=== PATIENT | female | born 1935 | race Caucasian/White ===

== ENCOUNTER 2019-04-24 01:33 | Day surgery (SDC) | payer MEDICARE, SELFPAY ==
[2019-04-21 14:45] VITALS: BMI 24.5
[2019-04-24 10:51] VITALS: BP 160/63; PULSE 68; RESP 18; TEMP 36.6; O2SAT 97
--- NOTE | 2019-04-24 11:09 | PM.IMHP ---
H&P: HPI History of Present Illness Chief complaint: hx of colon polyps Narrative: Rg Brooks is a 83 year old female presents today for surveillance colonoscopy. Last colonoscopy was in 2105 in [place], [place] and she tells me she had a cluster of polyps and then had surgery? to remove the polyps a month later. She also reports hx of precancerous polyps. She denies any acute bowel habit changes, diarrhea, constipation, melena, hematochezia, abdominal pains or rectal pains. She does have GERD and takes omeprazole which keeps symptoms under control. She denies abnormal weight loss, fever or chills. Denies family hx of GI maliganacies. Review of Systems Review of Systems: All systems reviewed & are unremarkable except as noted in HPI and below PMFSH Past Medical History Medical History (Updated 04/24/19 @ 11:12 by Tana Cleary, PREMIX OPERATOR CONCENTRATE) GERD (gastroesophageal reflux disease) Hx of adenomatous colonic polyps Hx of renal calculi Surgical History Surgical History (Updated 04/24/19 @ 11:12 by Tana Cleary, PREMIX OPERATOR CONCENTRATE) History of bladder suspension procedure Hx laparoscopic cholecystectomy Hx of hysterectomy Hx of lithotripsy Family History Family History (Updated 04/24/19 @ 11:12 by Tana Cleary, PREMIX OPERATOR CONCENTRATE) Mother Breast cancer Meds Home Medications and Allergies Home Medications Medication Instructions Recorded Confirmed Type aspirin 81 mg PO DAILY 04/21/19 04/21/19 History cholecalciferol (vitamin D3) 4,000 unit PO DAILY 04/21/19 04/21/19 History [Vitamin D3] diphenhydramine-acetaminophen 1 tablet PO HS PRN 04/21/19 04/21/19 History [Tylenol PM Extra Strength] garlic 2,000 mg PO DAILY 04/21/19 04/21/19 History glucosamine sulfate [Glucosamine] 500 mg PO BID 04/21/19 04/21/19 History hydrochlorothiazide 25 mg PO DAILY 04/21/19 04/21/19 History omega 2-nyq-gpz-fish oil [Fish Oil] 1 cap PO DAILY 04/21/19 04/21/19 History omeprazole 20 mg PO DAILY 04/21/19 04/21/19 History potassium chloride 20 meq PO DAILY 04/21/19 04/21/19 History Allergies Allergy/AdvReac Type Severity Reaction Status Date / Time No Known Allergies Allergy Verified 04/24/19 10:49 Vital Signs Vital Signs - 24 hr 04/24/19 10:51 Temperature 36.6 C Pulse Rate 68 Respiratory Rate 18 Blood Pressure 160/63 H Pulse Oximetry 97 Exam Const: General: cooperative, healthy appearing, comfortable, alert and awake Nutritional Appearance: average body habitus Orientation/consciousness: oriented to person, oriented to place, oriented to time and patient oriented x3 Limitations: no limitations HENMT: Head: normal to inspection and normocephalic Mouth: Yes Normal oral and palatal mucosa present and Yes moist mucous membranes Neck: Neck: normal visual inspection, supple and no JVD Carotids: no bruits Resp: Effort & Inspection: normal respiratory effort and no respiratory distress Auscultation: clear to auscultation bilaterally Cardio: Rate: regular rate Rhythm: regular rhythm Heart sounds: S1 normal heart sound present, S2 normal heart sound present, no gallops, no murmurs and no rubs GI: Inspection: normal to inspection GI Palp: No abdominal tenderness and No No hepatosplenomegaly present Percussion: Yes normal to percussion Auscultation: normal bowel sounds Rectal Exam: deferred Skin: General skin exam: normal color Lesions: no lesions Rashes: no rashes Neuro: General: oriented to person, oriented to place, oriented to time, patient oriented x3 and moves all extremities Cognition (Neuro): normal cognition Speech: normal speech Gait exam (Neuro): Normal gait present Extrem: General: normal to inspection Psych: Appearance: grossly normal Mental Status: mental status grossly normal Speech and movement: Normal speech and movement present Affect: normal affect Attitude: cooperative Thought process: Normal thought process present Assessment and Plan Assessment and plan (1) Hx of adenomatous colonic polyps:
[2019-04-24] MEDS: LACTATED RINGERS 1,000 ML 150 ML IV CONT (11:16)
--- NOTE | 2019-04-24 11:21 | P.PNAN_ITS ---
Anes - Initial Pre Proc Eval Procedure: Operation Date: 04/24/19 11:30 Proposed Procedures p Screening Colonoscopy - Shawn Alicea DO Date/Time: 04/24/19 11:21 Surgeon: Shawn Alicea DO Pre Op Diagnosis: hx of colon polyps Patient Data Age: 83 Gender: F Height: 5 ft 4 in Weight: 64 kg Last Vital Signs Temp 97.9 F 04/24/19 10:51 Pulse 68 04/24/19 10:51 Resp 18 04/24/19 10:51 BP 160/63 H 04/24/19 10:51 Pulse Ox 97 04/24/19 10:51 Allergies Allergy/AdvReac Type Severity Reaction Status Date / Time No Known Allergies Allergy Verified 04/24/19 10:49 Home Medications Medication Instructions Recorded Confirmed Type aspirin 81 mg PO DAILY 04/21/19 04/21/19 History cholecalciferol (vitamin D3) 4,000 unit PO DAILY 04/21/19 04/21/19 History [Vitamin D3] diphenhydramine-acetaminophen 1 tablet PO HS PRN 04/21/19 04/21/19 History [Tylenol PM Extra Strength] garlic 2,000 mg PO DAILY 04/21/19 04/21/19 History glucosamine sulfate [Glucosamine] 500 mg PO BID 04/21/19 04/21/19 History hydrochlorothiazide 25 mg PO DAILY 04/21/19 04/21/19 History omega 5-vek-fab-fish oil [Fish Oil] 1 cap PO DAILY 04/21/19 04/21/19 History omeprazole 20 mg PO DAILY 04/21/19 04/21/19 History potassium chloride 20 meq PO DAILY 04/21/19 04/21/19 History Patient hx anesthesia problems: none Family hx anesthesia problems: none PMFSH Past Medical History Medical History (Updated 04/24/19 @ 11:12 by Tana Cleary, SHIPPING CLERK/ADMIN) GERD (gastroesophageal reflux disease) Hx of adenomatous colonic polyps Hx of renal calculi Surgical History Surgical History (Updated 04/24/19 @ 11:12 by Tana Cleary, SHIPPING CLERK/ADMIN) History of bladder suspension procedure Hx laparoscopic cholecystectomy Hx of hysterectomy Hx of lithotripsy Family History Family History (Updated 04/24/19 @ 11:12 by Tana Cleary, SHIPPING CLERK/ADMIN) Mother Breast cancer Anes - Eval Final PreProcedure Day of Procedure 04/24/19 11:21 Patient weight: normal Heart: regular rate and rhythm Lungs: clear to auscultation Airway: Mallampati scale class II Neurological: alert and oriented Last oral intake: >/= 8 hours ASA classification: II Emergent: no Anesthetic plan: proceed Anesthesia type and monitoring: general GIVS and standard monitoring Informed Consent: The patient's anesthetic plan and its attendant risks and benefits were discussed with the patient/family/POA. Questions were solicited and answers provided to the satisfaction of the patient/family/POA.
[2019-04-24 12:17] VITALS: BP 101/57; PULSE 62; RESP 18; O2SAT 96
[2019-04-24 12:27] VITALS: BP 99/62; PULSE 56; RESP 12; O2SAT 99
[2019-04-24 12:37] VITALS: BP 135/85; PULSE 52; RESP 19; O2SAT 100
== END 2019-04-24 12:58 | disposition home or self-care (01) ==
PROVIDERS: PCP Family Medicine; Visit Provider Internal Medicine Gastroenterology
PROC: 0DJD8ZZ Inspection of Lower Intestinal Tract, Via Natural or Artificial Opening Endoscopic (ICD-10-PCS; CPT 45378; principal; 2019-04-24 11:30)
DX: Z12.11 Encounter for screening for malignant neoplasm of colon (principal); K63.5 Polyp of colon; K62.1 Rectal polyp; K57.30 Diverticulosis of large intestine without perforation or abscess without bleeding; K64.8 Other hemorrhoids; K21.9 Gastro-esophageal reflux disease without esophagitis; Z79.82 Long term (current) use of aspirin
CPT/HCPCS: 45385; 88305; J2370; J7120

== ENCOUNTER 2019-06-05 16:08 | Emergency (ER) | payer MEDICARE, SELFPAY ==
--- NOTE | ~2019-06-05 | CT_ITS ---
EXAMINATION: CT facial & cervical spine wo DATE: 06/05/2019 17:08 INDICATION: Chin injury. TECHNIQUE: Computed tomography (CT) of the maxillofacial region and cervical spine was performed with out intravenous contrast. Automated exposure control and iterative reconstruction technique were empl oyed. The dose-length product was 162.70 mGy-cm. COMPARISON: None FINDINGS: MAXILLOFACIAL CT: There is leftward deviation of the nasal septum. No fracture. There is mild mucosal thickening in the ethmoid sinuses. The orbits are normal. There is a 2 mm sialolith in the left floor of mouth. CERVICAL SPINE CT: There is mild scarring at the lung apices. There is 5 degrees levocurvature of cervical spine. Verteb ral body heights are normal. There is mildly decreased disc height at C4-C5 and C5-C6. The following disc levels are specifically discussed: C2-C3: There is no uncovertebral joint osteoarthritis. There is mild bilateral facet joint osteoarthr itis. There is no neural foraminal stenosis. There is no central canal stenosis. C3-C4: There is mild bilateral uncovertebral joint osteoarthritis. There is no facet joint osteoarthr itis. There is no neural foraminal stenosis. There is no central canal stenosis. C4-C5: There is moderate bilateral uncovertebral joint osteoarthritis. There is no facet joint osteoa rthritis. There is mild bilateral neural foraminal stenosis. There is mild central canal stenosis. C5-C6: There is mild right and severe left uncovertebral joint osteoarthritis. There is no facet join t osteoarthritis. There is mild left neural foraminal stenosis. There is no central canal stenosis. C6-C7: There is no uncovertebral joint osteoarthritis. There is no facet joint osteoarthritis. There is no neural foraminal stenosis. There is no central canal stenosis. C7-T1: There is no uncovertebral joint osteoarthritis. There is mild right and severe left facet join t osteoarthritis. There is mild left neural foraminal stenosis. There is no central canal stenosis. IMPRESSION: 1. No fracture. 2. Mild cervical spondylosis. Reviewed, dictated and finalized at location A.
--- NOTE | ~2019-06-05 | CT_ITS ---
EXAMINATION: CT brain wo con DATE: 06/05/2019 17:08 INDICATION: Head injury. TECHNIQUE: Computed tomography (CT) of the head was performed without intravenous contrast. The mA wa s adjusted according to patient size. Iterative reconstruction technique was employed. The dose-lengt h product was 605.33 mGy-cm. COMPARISON: None FINDINGS: There are scattered areas of low attenuation in the cerebral white matter, which is within normal limits for the patient's age. There is no intracranial hemorrhage, acute infarction, or abnorm al intracranial mass lesion. The ventricles are normal in size. The orbits are normal. There is mild mucosal thickening in the ethmoid sinuses. The mastoid air cells are normal. IMPRESSION: 1. Normal aging brain. Reviewed, dictated and finalized at location A. IMPRESSION: 1. Normal aging brain.
[2019-06-05 16:13] VITALS: BP 122/76; PULSE 88; RESP 16; TEMP 36.8; O2SAT 98
--- NOTE | 2019-06-05 16:41 | ED.GENADULT ---
HPI - General Adult General Chief complaint: Wound/Laceration Stated complaint: fall/chin lac Time Seen by Provider: 06/05/19 16:14 Source: patient Mode of arrival: ambulatory Limitations: no limitations History of Present Illness HPI narrative: Patient is an 83-year-old female who presents to emergency department for evaluation of fall that occurred just prior to arrival patient was ambulating when her dog pulled her down striking the chin and has since had aching pain to the chin where she has a laceration notes her tetanus is up-to-date. Patient notes moderate aching pain at the left TMJ region worse with manipulation of the mandible. Patient denies syncope loss of consciousness headache lightheadedness dizziness Related Data Home Medications Medication Instructions Recorded Confirmed aspirin 81 mg PO DAILY 04/21/19 04/21/19 cholecalciferol (vitamin D3) 4,000 unit PO DAILY 04/21/19 04/21/19 [Vitamin D3] diphenhydramine-acetaminophen 1 tablet PO HS PRN 04/21/19 04/21/19 [Tylenol PM Extra Strength] garlic 2,000 mg PO DAILY 04/21/19 04/21/19 glucosamine sulfate [Glucosamine] 500 mg PO BID 04/21/19 04/21/19 hydrochlorothiazide 25 mg PO DAILY 04/21/19 04/21/19 omega 4-nge-nqy-fish oil [Fish Oil] 1 cap PO DAILY 04/21/19 04/21/19 omeprazole 20 mg PO DAILY 04/21/19 04/21/19 potassium chloride 20 meq PO DAILY 04/21/19 04/21/19 Allergies Allergy/AdvReac Type Severity Reaction Status Date / Time No Known Allergies Allergy Verified 06/05/19 16:17 Review of Systems Review of Systems: All systems reviewed & are unremarkable except as noted in HPI and below PMFSH Past Medical History Medical History GERD (gastroesophageal reflux disease) Hx of adenomatous colonic polyps Hx of renal calculi Surgical History Surgical History History of bladder suspension procedure Hx laparoscopic cholecystectomy Hx of hysterectomy Hx of lithotripsy Family History Family History (Updated 04/24/19 @ 11:12 by Tana Cleary, CHEESE COOK) Mother Breast cancer Social History Social History Gender identity (if verbalized by the patient): Female Exam Narrative: Exam Narrative: GENERAL: Well-appearing, well-nourished, and in no acute distress. HEAD: Normocephalic, 1 cm superficial linear laceration of the chin EYES: PERRLA and EOMI. ENT: Nares clear, no rhinorrhea or epistaxis. Mucous membranes moist. Oropharynx without tonsillar hypertrophy exudate or other lesions. Tenderness of the left mandible no deformity noted NECK: Supple. No adenopathy or masses. N RESPIRATORY: Lungs clear to auscultation bilaterally. No respiratory distress. No wheezes rales or rhonchi HEART: Regular rate and rhythm. No murmur heard. Normal peripheral pulses. EXTREMITIES: Normal range of motion. No edema. No cervical thoracic or lumbar tenderness SKIN: Warm, dry, no rash. NEURO: No focal deficits. Alert and oriented x3. Cranial nerves II through XII grossly intact. Normal speech and gait PSYCH: Normal mood and affect. Course Course Emergency Course: Patient in the room in no distress aware of case findings treatment plan and diagnosis Vital Signs Vital signs: Vital Signs Temperature 98.2 F 06/05/19 16:13 Pulse Rate 88 06/05/19 16:13 Respiratory Rate 16 06/05/19 16:13 Blood Pressure 122/76 06/05/19 16:13 Pulse Oximetry 98 06/05/19 16:13 Temperature 98.2 F 06/05/19 16:13 Pulse Rate 88 06/05/19 16:13 Respiratory Rate 16 06/05/19 16:13 Blood Pressure 122/76 06/05/19 16:13 Pulse Oximetry 98 06/05/19 16:13 Procedures Laceration Laceration 1: Date: 06/05/19 Time: 17:39 Site: face Size (cm): 1 Description: linear Depth: simple, single layer Local Anesthetic: none Pre-repair: wound explored
== END 2019-06-05 17:49 | disposition home or self-care (01) ==
PROVIDERS: Emergency Provider Emergency Medicine; PCP Family Medicine
DX: S01.81XA Laceration without foreign body of other part of head, initial encounter (principal); K21.9 Gastro-esophageal reflux disease without esophagitis; Z86.010 Personal history of colon polyps; Z87.442 Personal history of urinary calculi; M47.812 Spondylosis without myelopathy or radiculopathy, cervical region; Z79.82 Long term (current) use of aspirin; Y93.K1 Activity, walking an animal; W18.39XA Other fall on same level, initial encounter
CPT/HCPCS: 12011; 70450; 70486; 72125; 99284

== ENCOUNTER 2019-07-18 14:15 | Outpatient (CLI) | payer MEDICARE, SELFPAY ==
[2019-07-18 14:41] LABS: Add Urine Microscopic? YES; Appearance Urine Clear (Clear); Bilirubin Urine Negative (Negative); Blood Urine 2+ (Negative); Color Urine Straw (Yellow); Glucose Urine UA Negative (Negative); Ketones Urine Negative (Negative); Leukocyte Esterase Ur Trace LEU/UL (Negative); Nitrate Urine Negative (Negative); Protein Urine Negative (Negative); Specific Grav Ur 1.012 (1.001-1.035); Squamous Epithelial Cell Urine Rare /hpf (Few); Urobilinogen Urine Negative mg/dL (<2.0)
== END 2019-07-18 14:16 | disposition home or self-care (01) ==
PROVIDERS: PCP Internal Medicine; Visit Provider Internal Medicine
DX: R31.9 Hematuria, unspecified (principal)
CPT/HCPCS: 81001

== ENCOUNTER 2019-08-06 08:25 | Outpatient (CLI) | payer MEDICARE, SELFPAY ==
--- NOTE | ~2019-08-06 | MM_ITS ---
EXAMINATION: MM screening [facility] BI w rachael HISTORY: Screening mammogram TECHNIQUE: Craniocaudal and mediolateral oblique 3-D tomosynthesis images were obtained and synthetic 2-D images were generated. CAD analysis was submitted and interpreted. COMPARISON: 07/31/2018 BREAST PARENCHYMAL COMPOSITION: There are scattered areas of fibroglandular density. FINDINGS: There are coarse benign-appearing bilateral breast calcifications, unchanged. There is no e vidence of suspicious mass, calcification, or architectural distortion to suggest malignancy in eithe r breast. There has been no suspicious interval change. IMPRESSION: 1. No mammographic evidence of malignancy. 2. Recommend routine screening mammography in one year. BI-RADS Category 2: Benign finding(s). Reviewed, dictated and finalized at location A.
== END 2019-08-06 08:26 | disposition home or self-care (01) ==
PROVIDERS: PCP Internal Medicine; Visit Provider Internal Medicine
DX: Z12.31 Encounter for screening mammogram for malignant neoplasm of breast (principal)
CPT/HCPCS: 77063; 77067

== ENCOUNTER 2019-10-30 07:38 | Outpatient (CLI) | payer MEDICARE, SELFPAY ==
[2019-10-30 07:53] LABS: Basophils Percent Auto 0.8 % (0.2-1.2); Eosinophils Absolute Auto 0.2 K/mm3 (0-0.3); Eosinophils Percent Auto 3.4 % (0-4.4); Hematocrit 40.8 % (37.0-47.0); Hemoglobin 13.9 g/dL (12.0-15.0); Immature Granulocyte Absolute 0.01 K/mm3 (0.00-0.031); Immature Granulocyte Percent A 0.2 % (0-0.5); Lymphocytes Absolute Auto 2.29 K/mm3 (0.9-3.2); Lymphocytes Percent Auto 48.6 % (18.3-44.2); Mean Corpuscular HGB Conc 34.1 g/dl (32-36); Mean Corpuscular Hemoglobin 33.3 pg (26-34); Mean Corpuscular Volume 97.6 fl (80-100); Mean Platelet Volume 9.6 fl (7.4-10.4); Monocytes Absolute Auto 0.4 K/mm3 (0.1-0.6); Monocytes Percent Auto 8.5 % (2.6-8.5); Neutrophils Absolute Auto 1.8 K/mm3 (1.3-6.7); Neutrophils Percent Auto 38.5 % (45.5-73.1); Platelet Count Result 273 k/mm3 (150-375); Red Blood Count 4.18 M/mm3 (4.2-5.4); White Blood Count 4.7 K/mm3 (4.5-10.0)
[2019-10-30 08:22] LABS: Alanine Aminotransferase 15 U/L (4-35); Albumin Level 4.1 g/dL (3.5-5.1); Alkaline Phosphatase 66 U/L (38-126); Anion Gap 6 mmol/L (8-16); Aspartate Amino Transferase 29 U/L (14-36); Bilirubin,Total 0.7 mg/dL (0.2-1.3); Blood Urea Nitrogen 16 mg/dL (7-17); Calcium 9.7 mg/dL (8.4-10.2); Carbon Dioxide 29 mmol/L (22-30); Chloride 98 mmol/L (98-107); Cholesterol 192 mg/dL (0-200); Estimated Glomerular Filt Rate 47; Glucose 94 mg/dL (65-105); HDL Direct 59 mg/dL; Magnesium 1.8 mg/dL (1.6-2.3); Potassium 3.6 mmol/L (3.4-5.0); Sodium 133 mmol/L (137-145); Triglycerides 92 mg/dL (<150)
[2019-10-30 08:32] LABS: LDL Cholesterol Direct 95 mg/dL
[2019-10-30 09:26] LABS: Folic Acid 10.4 ng/mL (2.76->20)
== END 2019-10-30 07:39 | disposition home or self-care (01) ==
PROVIDERS: PCP Internal Medicine; Visit Provider Internal Medicine
DX: E78.00 Pure hypercholesterolemia, unspecified (principal); R25.2 Cramp and spasm; R53.83 Other fatigue
CPT/HCPCS: 36415; 80053; 80061; 82607; 82746; 83735; 84443; 85025

== ENCOUNTER 2020-04-09 09:46 | Outpatient (CLI) | payer MEDICARE, SELFPAY ==
--- NOTE | ~2020-04-09 | US_ITS ---
EXAMINATION: US retroperitoneal duplex ltd DATE: 04/09/2020 11:08 INDICATION: hypertension TECHNIQUE: Multiple grayscale, color Doppler, and pulsed Doppler images of the kidneys and renal nat monalisa were obtained. COMPARISON: None. FINDINGS: The aorta peak systolic velocity is 84 cm/s. The right renal artery peak systolic velocity is 118 cm/ s in the proximal segment, 80 cm/s in the mid segment, and 87 cm/s in the distal segment. The left re nal artery peak systolic velocity is 55 cm/s in the proximal segment, 105 cm/s in the mid segment, an d 93 cm/s in the distal segment. 4.8 cm anechoic exophytic right renal cyst. Diffuse bilateral mild l ikely age-related renal cortical thinning. IMPRESSION: 1. No Doppler evidence of renal artery stenosis. Reviewed, dictated and finalized at location B. LIER QUALITY SPECIALIST
--- NOTE | ~2020-04-09 | US_ITS ---
EXAMINATION: US soft tissue head and neck DATE: 04/09/2020 10:53 INDICATION: Right neck torticollis and erythema. TECHNIQUE: Multiple grayscale and Doppler ultrasound images of the neck were obtained. COMPARISON: None FINDINGS: There is no abnormal mass or lymphadenopathy in the neck. IMPRESSION: 1. No abnormal mass or lymphadenopathy in the neck. Reviewed, dictated and finalized at location A. OSTATIC TUBING TESTER
== END 2020-04-09 09:47 | disposition home or self-care (01) ==
PROVIDERS: PCP Internal Medicine; Visit Provider Internal Medicine
DX: M43.6 Torticollis (principal); I10 Essential (primary) hypertension
CPT/HCPCS: 76536; 93976

== ENCOUNTER 2020-08-10 08:35 | Outpatient (CLI) | payer MEDICARE, SELFPAY ==
--- NOTE | ~2020-08-10 | MM_ITS ---
EXAMINATION: MM screening [facility] BI w rachael HISTORY: Screening TECHNIQUE: Craniocaudal and mediolateral oblique 3-D tomosynthesis images were obtained and synthetic 2-D images were generated. CAD analysis was submitted and interpreted. COMPARISON: Comparison to multiple prior studies sequentially, with oldest reviewed study dated 07/31. BREAST PARENCHYMAL COMPOSITION: There are scattered areas of fibroglandular density. FINDINGS: There are developing asymmetries in the subareolar location of the left breast on CC view. The right breast is stable without evidence for malignancy. IMPRESSION: 1. Developing left breast asymmetries. 2. Additional mammographic views and possible breast ultrasound are recommended. BI-RADS Category 0: Incomplete: Needs additional imaging evaluation. Reviewed, dictated and finalized at location A. IMPRESSION: 1. Developing left breast asymmetries. 2. Additional mammographic views and possible breast ultrasound are recommended . BI-RADS Category 0: Incomplete: Needs additional imaging evaluation.
== END 2020-08-10 08:36 | disposition home or self-care (01) ==
LOC: ANHIMG 08:39
PROVIDERS: PCP Internal Medicine; Visit Provider Internal Medicine
DX: Z12.31 Encounter for screening mammogram for malignant neoplasm of breast (principal); R92.8 Other abnormal and inconclusive findings on diagnostic imaging of breast
CPT/HCPCS: 77063; 77067

== ENCOUNTER 2020-09-03 13:01 | Outpatient (CLI) | payer MEDICARE, SELFPAY ==
--- NOTE | ~2020-09-03 | MMUS_ITS ---
EXAMINATION: MM diagnostic mammo unilat LT, US breast LT complete HISTORY: Developing left breast asymmetry suggested in left subareolar area on 08/10/2000 screening [facility] mogram TECHNIQUE: Additional 3-D tomosynthesis images of the left breast were performed and synthetic 2-D im ages were generated. CAD analysis was submitted and interpreted. High resolution complete left breast ultrasound was performed. COMPARISON: 08/10/2020 bilateral digital screening mammogram FINDINGS: MAMMOGRAPHIC FINDINGS: No suspicious mass or architectural distortion is detected. ULTRASOUND: No suspicious mass or shadowing of the left breast is detected. IMPRESSION: 1. No mammographic evidence of malignancy 2. Routine mammographic screening is recommended. BI-RADS Category 1: Negative Reviewed, dictated and finalized at location A. IMPRESSION: 1. No mammographic evidence of malignancy 2. Routine mammographic screening is recommended. BI-RADS Category 1: Negative
== END 2020-09-03 13:02 | disposition home or self-care (01) ==
LOC: ANHIMG 13:03
PROVIDERS: PCP Internal Medicine; Visit Provider Internal Medicine
DX: R92.8 Other abnormal and inconclusive findings on diagnostic imaging of breast (principal)
CPT/HCPCS: 76641; 77065

== ENCOUNTER 2020-10-28 07:53 | Outpatient (CLI) | payer MEDICARE, SELFPAY ==
[2020-10-28 08:10] LABS: Basophils Absolute Auto 0.1 K/mm3 (0.0-0.1); Basophils Percent Auto 0.9 % (0.2-1.2); Eosinophils Absolute Auto 0.2 K/mm3 (0-0.3); Eosinophils Percent Auto 4.5 % (0-4.4); Hematocrit 40.7 % (37.0-47.0); Hemoglobin 13.4 g/dL (12.0-15.0); Lymphocytes Absolute Auto 2.36 K/mm3 (0.9-3.2); Lymphocytes Percent Auto 44.6 % (18.3-44.2); Mean Corpuscular HGB Conc 32.9 g/dl (32-36); Mean Corpuscular Hemoglobin 32.8 pg (26-34); Mean Corpuscular Volume 99.8 fl (80-100); Mean Platelet Volume 9.2 fl (7.4-10.4); Monocytes Absolute Auto 0.5 K/mm3 (0.1-0.6); Monocytes Percent Auto 9.3 % (2.6-8.5); Neutrophils Absolute Auto 2.2 K/mm3 (1.3-6.7); Neutrophils Percent Auto 40.7 % (45.5-73.1); Platelet Count Result 370 k/mm3 (150-375); Red Blood Count 4.08 M/mm3 (4.2-5.4); Red Cell Distribution Width 12.7 % (11.5-14.5); White Blood Count 5.3 K/mm3 (4.5-10.0)
[2020-10-28 08:20] LABS: Alanine Aminotransferase 16 U/L (4-35); Albumin Level 4.2 g/dL (3.5-5.1); Alkaline Phosphatase 73 U/L (38-126); Anion Gap 5 mmol/L (8-16); Aspartate Amino Transferase 30 U/L (14-36); Bilirubin,Total 0.7 mg/dL (0.2-1.3); Blood Urea Nitrogen 14 mg/dL (7-17); Calcium 9.9 mg/dL (8.4-10.2); Carbon Dioxide 30 mmol/L (22-30); Chloride 102 mmol/L (98-107); Cholesterol 183 mg/dL (0-200); Estimated Glomerular Filt Rate 53; Glucose 89 mg/dL (65-110); HDL Direct 58 mg/dL; Potassium 3.8 mmol/L (3.4-5.0); Sodium 137 mmol/L (137-145); Triglycerides 89 mg/dL (<150)
[2020-10-28 08:31] LABS: LDL Cholesterol Direct 77 mg/dL
[2020-10-28 09:26] LABS: Folic Acid 18.1 ng/mL (2.76->20)
== END 2020-10-28 07:54 | disposition home or self-care (01) ==
LOC: ANHLAB 07:55
PROVIDERS: PCP Internal Medicine; Visit Provider Internal Medicine
DX: R53.83 Other fatigue (principal); E78.5 Hyperlipidemia, unspecified
CPT/HCPCS: 36415; 80053; 80061; 82607; 82746; 84443; 85025

== ENCOUNTER → 2020-12-07 06:57 | Outpatient (CLI) | payer MEDICARE, SELFPAY ==
--- NOTE | ~2020-12-07 | MR_ITS ---
EXAMINATION: MR lumbar spine wo [facility] EXAM DATE: 12/07/2020 07:39 INDICATION: Lumbar radiculopathy lumbar radiculopathy. TECHNIQUE: Multi-sequential, multiplanar MR images of the lumbar spine were obtained without contrast . Sagittal T1, T2, T2 fat saturation images. Axial T2 weighted images. There is no prior study for comparison. FINDINGS: There is moderate to severe thoracolumbar levoscoliosis. The conus medullaris terminates at the L1/2 level and has normal signal intensity and morphology. Moderate loss of all lumbar disc hei ghts. Vertebral body heights are relatively well-maintained. No bone marrow edema or focal suspicious signal abnormality. There is 3 mm anterolisthesis L4 on L5. Paraspinal soft tissue is unremarkable. Renal lesions, imaged portions consistent with cysts larger on the right up to 5 cm. Level by level evaluation: T12-L1: There is a mild diffuse disc bulge. Facet arthropathy: Mild to moderate. Neural foraminal stenosis: No stenosis. Central canal stenosis: No stenosis. L1-L2: There is a mild to moderate diffuse disc bulge. Facet arthropathy: Mild to moderate. Neural foraminal stenosis: Mild right. Central canal stenosis: No stenosis. L2-L3: There is a mild to moderate diffuse disc bulge. Facet arthropathy: Moderate to severe right, moderate left. Neural foraminal stenosis: Mild right. Central canal stenosis: Mild. L3-L4: There is a moderate to large diffuse disc bulge. Facet arthropathy: Severe . Ligamentum flavum enlargement. Neural foraminal stenosis: Mild to moderate left, mild right. Central canal stenosis: Moderate. L4-L5: There is a moderate diffuse disc bulge. Facet arthropathy: Severe left, moderate right. Ligamentum flavum hypertrophy. Neural foraminal stenosis: Mild to moderate left, mild right. Central canal stenosis: Moderate, less than level above. L5-S1: There is a moderate diffuse disc bulge, asymmetric to the left. Facet arthropathy: Moderate left, mild right. Neural foraminal stenosis: Moderate left. Central canal stenosis: Moderate left lateral recess, otherwise mild. IMPRESSION: 1. Moderate to severe thoracolumbar levoscoliosis. 2. Multilevel spondylosis as above. Reviewed, dictated and finalized at location A.
== END ==
PROVIDERS: PCP Internal Medicine; Visit Provider Nurse Practitioner Adult Health
DX: M47.26 Other spondylosis with radiculopathy, lumbar region (principal)
CPT/HCPCS: 72148

== ENCOUNTER → 2021-05-11 08:47 | Outpatient (CLI) | payer MEDICARE, SELFPAY ==
--- NOTE | ~2021-05-11 | XR_ITS ---
XR thoracic spine 2V DATE: 05/11/2021 09:07 INDICATION: Back pain TECHNIQUE: AP, lateral views COMPARISON: None FINDINGS: There is moderate dextroscoliosis of the thoracic spine and rotatory levoscoliosis of the l umbar spine. Diffuse osteopenia. The thoracic pedicles are intact. No fracture or bone destruction is evident. The thoracic pedicles are intact. No paraspinal soft tiss ue thickening. Mild degenerative spurring of the thoracic spine. Status post cholecystectomy. IMPRESSION: Osteopenia Dextroscoliosis Mild degenerative change Reviewed, dictated and finalized at location A. TATION DESIGNER
--- NOTE | ~2021-05-11 | XR_ITS ---
EXAMINATION: XR abdomen/kub 1V EXAM DATE: 05/11/2021 09:07 INDICATION: R10.9 - Unspecified abdominal pain TECHNIQUE: Frontal projection(s) of the abdomen for interpretation. Comparison is made to prior exami nation from 05/10/2017. FINDINGS: Calcifications in the pelvis are believed to be phleboliths. Moderate amount of colonic sto ol . Nonobstructive bowel gas pattern. There are cholecystectomy clips. Moderate lumbar levoscoliosis and spondylosis. Lung bases are clear. IMPRESSION: Moderate amount of colonic stool. Reviewed, dictated and finalized at location B. CAL SUPPORT ASSISTANT
== END ==
PROVIDERS: PCP Internal Medicine; Visit Provider Internal Medicine
DX: R10.9 Unspecified abdominal pain (principal); M85.88 Other specified disorders of bone density and structure, other site; M51.36 Other intervertebral disc degeneration, lumbar region
CPT/HCPCS: 72070; 74018

== ENCOUNTER 2021-08-04 12:38 | Outpatient (CLI) | payer MEDICARE, SELFPAY ==
--- NOTE | ~2021-08-04 | DEXA_ITS ---
Bone Density Report Name: SABIHA DAMON Age: 85 Sex: Female Ethnicity: Todd Date of : 1935 Indication: postmenopausal; screening for osteoporosis; height loss; hysterectomy; Referring Provider: DESIREE FRANCIS Study: Bone densitometry was performed. Exam Date: August 04, 2021 Accession number: [id number] Bone Density: Region BMD T-score Z-score Classification AP Spine(L1, L2, L3) 0.864 -1.4 1.4 Osteopenia Femoral Neck (Left) 0.658 -1.7 0.8 Osteopenia Total Hip (Left) 0.817 -1.0 1.3 Normal Femoral Neck (Right) 0.676 -1.6 1.0 Osteopenia Total Hip (Right) 0.776 -1.4 1.0 Osteopenia Total Hip Mean 0.796 -1.2 1.2 Osteopenia World Health Organization criteria for BMD impression classify patients as: Normal (T-score at or above -1.0), Osteopenia (T-score between -1.0 and -2.5), or Osteoporosis (T-score at or below -2.5). 10-year Fracture Risk(1): Major Osteoporotic Fracture 14% Hip Fracture 4.1% Reported Risk Factors: [place] (), Neck BMD=0.658, BMI=25.1 (1) FRAX(R) Version 3.08. Fracture probability calculated for an untreated patient. Fracture probability may be lower if the patient has received treatment. Previous Exams: Region Exam Age BMD T-score BMD Change BMD Change Date g/cm2 vs Baseline vs Previous Total Hip(Left) 08/04/2021 85 0.817 -1.0 -0.023 (-2.7%) -0.023 (-2.7%) 08/02/2018 82 0.840 -0.8 Total Hip(Right) 08/04/2021 85 0.776 -1.4 -0.048 (-5.8%) -0.048 (-5.8%) 08/02/2018 82 0.823 -1.0 *Denotes significance at 95% confidence level, LSC for Total Hip = 0.027 g/cm2 Clinical Information Provided by Patient: Has used the following medications: Vitamin D Has the following medical conditions: Hysterectomy Patient maximum height was 66 Menopause Age: 49 Does not regularly consume dairy products Onset of menses at age 11 Number of children 1 Impression: The patient has low bone mass, based on the Left Femoral Neck T-score. The patient has an estimated ten-year risk of hip fracture of 4.1% and an estimated ten-year risk of major fracture of 14%, based on the WHO FRAX algorithm. The BMD for the Total Hip(Right) decreased, changing by -5.8% since the last DXA exam. Discussion: BONE DENSITY IS LOW AT ONE OR MORE SKELETAL SITES. THE PATIENT'S BMD AND CLINICAL RISK FACTORS CONTRIBUTE TO THIS PATIENT'S INCREASED RISK OF FRACTURE. This patient's lowest T-score is low at one or more skeletal sites. It meets the World Health Organization's
== END 2021-08-04 12:39 | disposition home or self-care (01) ==
PROVIDERS: PCP Internal Medicine; Visit Provider Advanced Practice Midwife
DX: Z78.0 Asymptomatic menopausal state (principal); M85.89 Other specified disorders of bone density and structure, multiple sites
CPT/HCPCS: 77080

== ENCOUNTER 2021-08-11 08:38 | Outpatient (CLI) | payer MEDICARE, SELFPAY ==
--- NOTE | ~2021-08-11 | MM_ITS ---
EXAMINATION: MM screening [facility] w rachael HISTORY: Screening mammogram TECHNIQUE: Craniocaudal and mediolateral oblique 3-D tomosynthesis images were obtained and synthetic 2-D images were generated. CAD analysis was submitted and interpreted. COMPARISON: No prior mammogram is available for comparison at this institution. BREAST PARENCHYMAL COMPOSITION: There are scattered areas of fibroglandular density. FINDINGS: There is no evidence of suspicious mass, calcification, or architectural distortion to sugg est malignancy in either breast. There has been no suspicious interval change. IMPRESSION: 1. No mammographic evidence of malignancy. 2. Recommend routine screening mammography in one year. BI-RADS Category 1: Negative Reviewed, dictated and finalized at location A.
== END 2021-08-11 08:39 | disposition home or self-care (01) ==
PROVIDERS: PCP Internal Medicine; Visit Provider Internal Medicine
DX: Z12.31 Encounter for screening mammogram for malignant neoplasm of breast (principal)
CPT/HCPCS: 77063; 77067

== ENCOUNTER 2021-09-05 14:13 | Outpatient (CLI) | payer MEDICARE, SELFPAY ==
--- NOTE | ~2021-09-05 | CT_ITS ---
EXAMINATION: CT abdomen pelvis wo con DATE: 09/05/2021 14:33 INDICATION: Chronic intermittent abdominal pain, right side. TECHNIQUE: Computed tomography (CT) of the abdomen and pelvis was performed without intravenous contr ast. Automated exposure control and iterative reconstruction technique were employed. Exam dose: 415 .77 mGy-cm total exam DLP. COMPARISON: 07/11/2021 KUB FINDINGS: Right fat-containing foramen of Bochdalek hernia. There is mild discoid atelectasis or scar ring at the lung bases. Emphysematous changes are noted. Normal heart size. No pericardial or pleural effusion. Moderate hiatal hernia. Status post cholecystectomy. The liver, spleen, pancreas, bile ducts and pancreatic duct are unremark able. Normal morphology of the adrenal glands. 3.8 x 4.8 cm lower pole right renal cyst. Additional smaller cysts of each kidney are suggested on th is limited noncontrast examination. Scattered bilateral arterial calcifications and/or calculi. No ureteral calculus or hydroureteronephr osis. The urinary bladder is unremarkable. Status post hysterectomy. There is atherosclerotic calcification of the abdominal aorta, iliac and femoral arteries, without an eurysm. No intraperitoneal or retroperitoneal or pelvic mass lesion or adenopathy or ascites is detected. There are numerous diverticula of the sigmoid colon; no CT evidence of diverticulitis. No bowel obstr uction, bowel wall thickening, pneumatosis or intraperitoneal free air is detected. Small fat-containing umbilical hernia. Levoscoliosis and multilevel degenerative disc disease of the lumbar spine. Prominent degenerative changes apophyseal joints, with associated grade 1 anterolisthesis at L4-5. Osteopenia. IMPRESSION: Moderate hiatal hernia Status post cholecystectomy Renal cysts Scattered bilateral arterial calcifications and/or calculi of the kidneys Status post hysterectomy Diverticulosis sigmoid colon; no CT evidence of diverticulitis Reviewed, dictated and finalized at [facility]. Reviewed, dictated and finalized at location B.
== END 2021-09-05 14:14 | disposition home or self-care (01) ==
PROVIDERS: PCP Internal Medicine; Visit Provider Internal Medicine
DX: G89.29 Other chronic pain (principal); R10.9 Unspecified abdominal pain; K44.9 Diaphragmatic hernia without obstruction or gangrene; Z90.49 Acquired absence of other specified parts of digestive tract; N28.1 Cyst of kidney, acquired; K57.30 Diverticulosis of large intestine without perforation or abscess without bleeding; N28.89 Other specified disorders of kidney and ureter
CPT/HCPCS: 74176

== ENCOUNTER 2022-10-26 08:10 | Outpatient (CLI) | payer MEDICARE, SELFPAY ==
--- NOTE | ~2022-10-26 | MM_ITS ---
EXAMINATION: MM screening [facility] w rachael HISTORY: Screening TECHNIQUE: Craniocaudal and mediolateral oblique 3-D tomosynthesis images were obtained and synthetic 2-D images were generated. CAD analysis was submitted and interpreted. COMPARISON: Comparison to multiple prior studies sequentially, with oldest reviewed study dated 07/31. BREAST PARENCHYMAL COMPOSITION: The breasts are heterogeneously dense, which may obscure small masses . FINDINGS: Stable benign-appearing bilateral breast calcifications. There is no evidence of suspicious mass, calcification, or architectural distortion to suggest malignancy in either breast. There has b een no suspicious interval change. IMPRESSION: 1. No mammographic evidence of malignancy. 2. Recommend routine screening mammography in one year. BI-RADS Category 2: Benign finding(s). Reviewed, dictated and finalized at location A.
== END 2022-10-26 08:11 | disposition home or self-care (01) ==
PROVIDERS: PCP Internal Medicine; Visit Provider Internal Medicine
DX: Z12.31 Encounter for screening mammogram for malignant neoplasm of breast (principal)
CPT/HCPCS: 77063; 77067

== ENCOUNTER 2023-03-19 09:20 | Emergency (ER) | payer MEDICARE, SELFPAY ==
--- NOTE | 2023-03-19 09:40 | ED.URI ---
HPI - URI/Sore Throat General Chief Complaint: Upper Respiratory Infection Stated Complaint: head congestion,sore throat Time Seen by Provider: 03/19/23 09:40 Source: patient Mode of arrival: ambulatory Limitations: no limitations History of Present Illness HPI Narrative: 87-year-old female presents with complaint nasal congestion, sinus pressure, postnasal drainage, sore throat since February 25. Reports symptoms have been off and on. Afebrile. All systems reviewed and negative except as noted above. Related Data Home Medications Medication Instructions Recorded Confirmed cholecalciferol (vitamin D3) 100 4,000 unit PO DAILY 04/21/19 08/14/22 mcg (4,000 unit) capsule (Vitamin D3) diphenhydramine 25 1 tablet PO HS PRN Sleep 04/21/19 08/14/22 mg-acetaminophen 500 mg tablet (Tylenol PM Extra Strength) garlic 2,000 mg PO DAILY 04/21/19 08/14/22 omega 7-bzk-hmh-fish oil 1,000 mg 1 cap PO DAILY 04/21/19 03/19/23 (120 mg-180 mg) capsule (Fish Oil) Lactobacillus 40-Bifidobact cap PO 05/10/21 08/14/22 3-S.thermophilus 100 billion cell capsule (Probiotic) antiarthritic combination no.2 900 mg PO 08/14/22 08/14/22 mg tablet (glucosamine-chondroitin) Allergies Allergy/AdvReac Type Severity Reaction Status Date / Time No Known Allergies Allergy Verified 03/19/23 09:49 Review of Systems Review of Systems: CONSTITUTIONAL: Denies fever, chills, or sweats. EYES: Denies visual changes, redness, or discharge. ENT: Reports rhinorrhea, congestion, sore throat. Denies otalgia. CARDIOVASCULAR: Denies chest pain, palpitations, or edema. RESPIRATORY: reports cough. Denies dyspnea. GASTROINTESTINAL: Denies abdominal pain, nausea, vomiting, or diarrhea. GENITOURINARY: Denies dysuria or hematuria. SKIN: Denies rash or itching. MUSCULOSKELETAL: Denies back pain, joint pain, or myalgia. NEUROLOGIC: Denies headache, numbness, or weakness. PSYCHIATRIC: Denies anxiety or depression. All other systems reviewed are negative, except as documented in HPI. [facility] Past Medical History Medical History GERD (gastroesophageal reflux disease) Hx of adenomatous colonic polyps Hx of renal calculi Surgical History Surgical History History of bladder suspension procedure Hx laparoscopic cholecystectomy Hx of cataract surgery Hx of hysterectomy Hx of lithotripsy Family History Family History Mother Breast cancer Social History Social History Smoking status: Never smoker Second hand tobacco smoke exposure: No Alcohol intake: never Substance use: never Lack of Transportation: No Lack of Food: Never True Current Housing: I Have Housing Concerned About Future Housing: No Difficulty Paying Gas/Electric Bills: No Difficulty Paying for Meds: No Currently Unemployed: No Education: High School Diploma/GED Difficulty w/ Childcare or Family Care: No Gender identity (if verbalized by the patient): Female Comments At time of signature, agree with nursing past medical, surgical, social and family history. There is no relevant family history pertinent to the presenting complaint. Exam Narrative: GENERAL: This is a well-nourished, well-developed patient, in no apparent distress. HEAD: normocephalic, atraumatic. EYES: PERRL. Sclera clear/white. Vision is grossly intact. EARS: External ears normal, auditory canals clear and without drainage, fluid to bilateral TMs, bulging without erythema or perforation. Hearing grossly intact. NOSE: External nose normal with nasal drainage with erythema to bilateral nares. THROAT: Mucous membranes moist, Postnasal drainage with mild erythema, no exudates or swelling. NECK: Neck supple, non-tender without lymphadenopathy, masses or thyromegaly.
[2023-03-19 09:42] VITALS: BP 155/82; PULSE 76; RESP 16; TEMP 37.2; O2SAT 99
== END 2023-03-19 10:04 | disposition home or self-care (01) ==
PROVIDERS: Emergency Provider Nurse Practitioner Family; PCP Internal Medicine
DX: J01.90 Acute sinusitis, unspecified (principal); K21.9 Gastro-esophageal reflux disease without esophagitis
CPT/HCPCS: 99213; G0463

== ENCOUNTER 2023-09-12 13:30 | Outpatient (CLI) | payer MEDICARE, SELFPAY ==
--- NOTE | ~2023-09-12 | DEXA_ITS ---
Bone Density Report Name: SABIHA DAMON Age: 87 Sex: Female Ethnicity: White Date of : 1935 Indication: osteopenia; height loss; hysterectomy; Referring Provider: MONTY, YURIY Kaufman Study: Bone densitometry was performed. Exam Date: September 12, 2023 Accession number: [id number] Bone Density: Region BMD T-score Z-score Classification AP Spine(L3, L4) 0.904 -1.8 1.2 Osteopenia Femoral Neck (Left) 0.620 -2.1 0.5 Osteopenia Total Hip (Left) 0.816 -1.0 1.3 Normal Femoral Neck (Right) 0.592 -2.3 0.2 Osteopenia Total Hip (Right) 0.774 -1.4 1.0 Osteopenia Total Hip Mean 0.795 -1.2 1.2 Osteopenia World Health Organization criteria for BMD impression classify patients as: Normal (T-score at or above -1.0), Osteopenia (T-score between -1.0 and -2.5), or Osteoporosis (T-score at or below -2.5). 10-year Fracture Risk(1): Major Osteoporotic Fracture 14% Hip Fracture 4.8% Reported Risk Factors: [place] (), Neck BMD=0.592, BMI=23.9 (1) FRAX(R) Version 3.08. Fracture probability calculated for an untreated patient. Fracture probability may be lower if the patient has received treatment. Previous Exams: Region Exam Age BMD T-score BMD Change BMD Change Date g/cm2 vs Baseline vs Previous Total Hip(Left) 09/12/2023 87 0.816 -1.0 -0.024 (-2.8%) -0.001 (-0.1%) 08/04/2021 85 0.817 -1.0 -0.023 (-2.7%) -0.023 (-2.7%) 08/02/2018 82 0.840 -0.8 Total Hip(Right) 09/12/2023 87 0.774 -1.4 -0.049 (-6.0%) -0.001 (-0.2%) 08/04/2021 85 0.776 -1.4 -0.048 (-5.8%) -0.048 (-5.8%) 08/02/2018 82 0.823 -1.0 *Denotes significance at 95% confidence level, LSC for Total Hip = 0.027 g/cm2 Clinical Information Provided by Patient: Has used the following medications: Vitamin D Has the following medical conditions: Hysterectomy Patient maximum height was 66 Menopause Age: 49 No regular weight bearing exercise Drinks caffeinated beverages Onset of menses at age 11 Number of children 1 Impression: The patient has low bone mass, based on the Right Femoral Neck T-score. The patient has an estimated ten-year risk of hip fracture of 4.8% and an estimated ten-year risk of major fracture of 14%, based on the WHO FRAX algorithm. No significant bone loss was observed. Discussion: BONE DENSITY IS LOW AT ONE OR MORE SKELETAL SITES. THE PATIENT'S BMD AND CLINICAL RISK FACTORS CONTRIBUTE TO THIS PATIENT'S INCREASED RISK OF FRACTURE. This patient's lowest T-score is low
== END 2023-09-12 13:31 | disposition home or self-care (01) ==
LOC: ANHIMG 13:33
PROVIDERS: PCP Internal Medicine; Visit Provider Nurse Practitioner
DX: Z13.820 Encounter for screening for osteoporosis (principal); M85.88 Other specified disorders of bone density and structure, other site; M85.852 Other specified disorders of bone density and structure, left thigh; M85.851 Other specified disorders of bone density and structure, right thigh
CPT/HCPCS: 77080

== ENCOUNTER 2023-10-30 08:48 | Outpatient (CLI) | payer MEDICARE, SELFPAY ==
--- NOTE | ~2023-10-30 | MM_ITS ---
EXAMINATION: MM screening [facility] w rachael HISTORY: Screening TECHNIQUE: Craniocaudal and mediolateral oblique 3-D tomosynthesis images were obtained and synthetic 2-D images were generated. CAD analysis was submitted and interpreted. COMPARISON: Comparison to multiple prior studies sequentially, with oldest reviewed study dated 07/31. BREAST PARENCHYMAL COMPOSITION: Dense: The breasts are heterogeneously dense, which may obscure small masses FINDINGS: There is no evidence of suspicious mass, calcification, or architectural distortion to sugg est malignancy in either breast. There has been no suspicious interval change. IMPRESSION: 1. No mammographic evidence of malignancy. 2. Recommend routine screening mammography in one year. BI-RADS Category 1: Negative Reviewed, dictated and finalized at location B.
== END 2023-10-30 08:49 | disposition home or self-care (01) ==
PROVIDERS: PCP Internal Medicine; Visit Provider Internal Medicine
DX: Z12.31 Encounter for screening mammogram for malignant neoplasm of breast (principal)
CPT/HCPCS: 77063; 77067

== ENCOUNTER 2023-11-21 08:46 | Outpatient (CLI) | payer MEDICARE, SELFPAY ==
--- NOTE | ~2023-11-21 | XR_ITS ---
EXAMINATION: XR lumbar spine 2-3V DATE: 11/21/2023 09:15 INDICATION: Dorsalgia, unspecified. TECHNIQUE: 3 views of the lumbar spine on 4 radiographs were obtained. COMPARISON: CT abdomen and pelvis 09/05/2021 FINDINGS: There is 38 degrees levoscoliosis of thoracolumbar spine. There is 3 mm anterolisthesis of L4 on L5. Vertebral body heights are normal. There is moderately decreased disc height at T12-L1, mil dly decreased disc height at L1-L2, moderately decreased disc height at L2-L3 and L3-L4, and severely decreased disc height at L4-L5 and L5-S1. There is multilevel severe facet joint osteoarthritis. Chu gical clips in the right upper quadrant are likely from cholecystectomy. IMPRESSION: 1. Severe lumbar spondylosis. 2. Thoracolumbar levoscoliosis. Reviewed, dictated and finalized at location A.
--- NOTE | ~2023-11-21 | XR_ITS ---
EXAMINATION: XR hip RT min 2V DATE: 11/21/2023 09:15 INDICATION: Right hip pain. TECHNIQUE: 2 views of right hip were obtained. COMPARISON: None. FINDINGS: Alignment is normal. No fracture. There is mild right hip osteoarthritis. IMPRESSION: 1. Mild right hip osteoarthritis. Reviewed, dictated and finalized at location A.
== END 2023-11-21 08:47 | disposition home or self-care (01) ==
PROVIDERS: PCP Internal Medicine; Visit Provider Internal Medicine
DX: M47.896 Other spondylosis, lumbar region (principal); M16.11 Unilateral primary osteoarthritis, right hip
CPT/HCPCS: 72100; 73502

== ENCOUNTER 2024-04-23 14:26 | Outpatient (CLI) | payer MEDICARE, SELFPAY ==
--- NOTE | ~2024-04-23 | XR_ITS ---
HISTORY: M54.9 - Dorsalgia, unspecified COMPARISON: 11/21/2023 TECHNIQUE: 2 view lumbar spine. FINDINGS: 48 degrees of levoscoliotic curvature is identified within the thoracolumbar spine. This has increased from 38 degrees approximately 5 months earlier. There are 5 non-rib bearing lumbar vertebral bodies. 8 mm of anterolisthesis of L4 onto L5 is now identified, compared with 3 mm in the previous study. Significant facet arthropathy is redemonstrated, as is decreased intravertebral disc spaces at all le vels. There are no lytic or sclerotic lesions. IMPRESSION: Severe degenerative disease, demonstrating progression since November 2023, as detailed above. Reviewed, dictated and finalized at location A. CHEF
--- NOTE | ~2024-04-23 | XR_ITS ---
HISTORY: M25.559 - Pain in unspecified hip COMPARISON: None TECHNIQUE: 2 views of the left hip FINDINGS: No acute fracture or dislocation is identified. Superior lateral sclerosis of the left femoral acetabular joint space is present consistent with oste oarthritis. Mineralization is age-appropriate. IMPRESSION: Degenerative disease without acute fracture or dislocation Reviewed, dictated and finalized at location A. [employer]
== END 2024-04-23 14:27 | disposition home or self-care (01) ==
PROVIDERS: PCP Internal Medicine; Visit Provider Internal Medicine
DX: M16.12 Unilateral primary osteoarthritis, left hip (principal); M51.369 Other intervertebral disc degeneration, lumbar region without mention of lumbar back pain or lower extremity pain
CPT/HCPCS: 72100; 73502